=== PATIENT | female | born 1995 | race Caucasian/White ===

== ENCOUNTER 2016-07-05 10:51 | Emergency (ER) | payer OTHER ==
[~2016-07-05] VITALS: Ht 160 cm; Wt 55.0 kg
[2016-07-05 10:52] VITALS: BP 119/66; PULSE 86; RESP 15; TEMP 98.2; O2SAT 99
--- NOTE | 2016-07-05 11:06 | PD ---
HPI Chief Complaint: Related Problem Time Seen by Provider: 11:05 Travel History International Travel<30 days: No Contact w/Intl Traveler<30days: No Traveled to known affect area: No History of Present Illness HPI 20-year-old female came to the emergency room with history of spotting since this morning. She thinks she is 5-6 weeks . She did a home test one week ago and was positive. He went with her OB this . However was brought to the emergency room by her mom with these complaints. She says she had a little bit of cramping initially but that has subsided. Patient is A0. She is otherwise a healthy person. [facility] Past Medical History Narrative Medical List of her past medical, surgical, social and family history was reviewed from the nursing note. ?: LMP: 05/07/16 Social History Tobacco Use: No Allergies-Medications (Allergen,Severity, Reaction): Coded Allergies: No Known Allergies (Unverified , 07/05/16) Comments No known drug allergies. Reported Meds & Prescriptions Reported Meds & Active Scripts Active Macrobid (Nitrofurantoin Monoh/Nitrofur Macro) 100 Mg Cap 100 Mg PO BID 10 Days Clinical Nutrients Prenat 7.5-0.2 mg ( Vitamins W/ Ferrous S) 1 Tab Tab 1 Tab PO ONCE 30 Days Narrative Medication List of her allergies reviewed from the nursing note. Review of Systems Except as stated in HPI: all other systems reviewed are Neg Physical Exam Narrative GENERAL: Awake, alert, no obvious distress SKIN: Focused skin assessment warm/dry. HEAD: Atraumatic. Normocephalic. EYES: Pupils equal and round. No scleral icterus. No injection or drainage. ENT: No nasal bleeding or discharge. Mucous membranes pink and moist. NECK: Trachea midline. No JVD. CARDIOVASCULAR: Regular rate and rhythm. No murmur appreciated. RESPIRATORY: No accessory muscle use. Clear to auscultation. Breath sounds equal bilaterally. GASTROINTESTINAL: Abdomen soft, non-tender, nondistended. Hepatic and splenic margins not palpable. MUSCULOSKELETAL: No obvious deformities. No clubbing. No cyanosis. No edema. NEUROLOGICAL: Awake and alert. No obvious cranial nerve deficits. Motor grossly within normal limits. Normal speech. PSYCHIATRIC: Appropriate mood and affect; insight and judgment normal. Data Data Last Documented VS Vital Signs Date Time Temp Pulse Resp B/P Pulse Ox O2 Delivery O2 Flow Rate FiO2 07/05/16 13:19 97 18 120/68 99 07/05/16 10:52 98.2 Orders Complete Blood Count With Diff (07/05/16 11:12) Complete Rh (07/05/16 11:12) Urinalysis - C+S If Indicated (07/05/16 11:12) Ed Urine Pregnancytest Poc (07/05/16 11:12) Ed Poc Ultrasound (07/05/16 11:12) Beta Hcg (Quant/Titer) (07/05/16 11:13) Basic Metabolic Panel (Bmp) (07/05/16 11:30) Urine Culture (07/05/16 11:23) Nitrofurantoin Monohyd Macrocr (Macrobid (07/05/16 12:30) Labs Laboratory Tests Test 07/05/16 07/05/16 11:23 11:30 Urine Color YELLOW Urine Turbidity HAZY Urine pH 6.0 Urine Specific [place] 1.022 Urine Protein 30 mg/dL Urine Glucose (UA) NEG mg/dL Urine Ketones 10 mg/dL Urine Occult Blood LARGE Urine Nitrite POS Urine Bilirubin NEG Urine Urobilinogen LESS THAN 2.0 MG/DL Urine Leukocyte Esterase MOD Urine RBC 1 /hpf Urine WBC 30 /hpf Urine Squamous Epithelial 12 /hpf Cells Urine Bacteria FEW /hpf Urine Mucus FEW /lpf Microscopic Urinalysis Comment CULTURE INDICATED White Blood Count 6.2 TH/MM3 Red Blood Count 4.70 MIL/MM3 Hemoglobin 14.2 GM/DL Hematocrit 41.5 % Mean Corpuscular Volume 88.4 FL Mean Corpuscular Hemoglobin 30.2 PG Mean Corpuscular Hemoglobin 34.1 % Concent Red Cell Distribution Width 12.9 % Platelet Count 247 TH/MM3 Mean Platelet Volume 8.4 FL Neutrophils (%) (Auto) 59.1 % Lymphocytes (%) (Auto) 29.6 % Monocytes (%) (Auto) 9.2 % Eosinophils (%) (Auto) 1.8 % Basophils (%) (Auto) 0.3 % Neutrophils # (Auto) 3.7 TH/MM3 Lymphocytes # (Auto) 1.8 TH/MM3 Monocytes # (Auto) 0.6 TH/MM3 Eosinophils # (Auto) 0.1 TH/MM3 Basophils # (Auto) 0.0 TH/MM3 CBC Comment DIFF FINAL Differential Comment Sodium Level 138 MEQ/L Potassium Level 3.5 MEQ/L Chloride Level 105 MEQ/L Carbon Dioxide Level 27.7 MEQ/L Anion Gap 5 MEQ/L Blood Urea Nitrogen 5 MG/DL Creatinine 0.55 MG/DL Estimat Glomerular Filtration 140 ML/MIN Rate Random Glucose 82 MG/DL Calcium Level 9.0 MG/DL Human Chorionic Gonadotropin, [id number] MIU/ML Quant Blood Type A POSITIVE Rho(D) Type POSITIVE MDM Medical Decision Making Medical Screen Exam Complete: Yes Emergency Medical Condition: Yes Medical Record Reviewed: Yes Differential Diagnosis Tetanus , ectopic , early with bleed Narrative Course 11:29 AM blood tests has been ordered. I'll do a bedside ultrasound. The whole process has been explained to the patient and her mother. 12:25 PM awaiting for the beta-hCG. Patient does have significant UTI and I ordered 1 dose of Macrobid for her. Please look at my procedure note for the pelvic ultrasound. Patient will be discharged home with prescriptions. Procedures Procedure Narrative Emergency Department Pelvic ultrasound was performed with patient consent. The curvilinear probe was used in the transverse and sagittal views within the suprapubic region revealing single, live intrauterine . heart rate was 164 bpm. See this measures 7 weeks in 6 days by crown rump length. EKG Prior to Arrival: No Diagnosis Primary Impression: First trimester Additional Impressions: Threatened miscarriage UTI (urinary tract infection) Qualified Code: N39.0 - Urinary tract infection without hematuria, site unspecified Referrals: Primary Care Physician 2 days Additional Instructions: Please follow-up with your OB as soon as possible. He needs to return in 48 hours to get here beta hCG repeated. Drink lots of fluid. You should not be lifting weights heavier than 5 pounds. Take the medications as per the prescription direction. Please return to the ER if the condition worsens or any other new concerns. Med/Other Pt SpecificInfo: Prescription(s) given Scripts Nitrofurantoin Monohydrate Macrocrystals (Macrobid)100 Mg [id number] Mg PO BID 10 Days Ref 0 Prov:Deniz Gill MD 07/05/16 Vitamins W/ Ferrous S (Clinical Nutrients Prenat 7.5-0.2 mg)1 Tab Tab1 Tab PO ONCE 30 Days Prov:Deniz Gill MD 07/05/16 Disposition: 01 DISCHARGE HOME Condition: Stable Deniz Gill MD July 05, 2016 11:06
[2016-07-05 12:01] LABS: AUTOMATED NEUTROPHIL # 3.7 TH/MM3 (1.8-7.7); BASOPHIL % 0.3 % (0.0-2.0); EOSINOPHIL # 0.1 TH/MM3 (0-0.4); EOSINOPHIL % 1.8 % (0.0-4.0); HEMATOCRIT 41.5 % (35.0-46.0); HEMO FLAGS DIFF FINAL; LYMPH % 29.6 % (9.0-44.0); LYMPHOCYTE # 1.8 TH/MM3 (1.0-4.8); MEAN CELL VOLUME 88.4 FL (80.0-100.0); MEAN CORPUSCULAR HEMOGLOBIN 30.2 PG (27.0-34.0); MEAN CORPUSCULAR HGB CONC 34.1 % (32.0-36.0); MONO % 9.2 % (0.0-8.0); NEUT % 59.1 % (16.0-70.0); PLATELET COUNT 247 TH/MM3 (150-450); RED CELL DISTRIBUTION WIDTH 12.9 % (11.6-17.2); WHITE BLOOD COUNT 6.2 TH/MM3 (4.0-11.0)
[2016-07-05 12:10] LABS: BACTERIA, URINE FEW /hpf; BLOOD, URINE LARGE (NEG); COMMENT (UR) CULTURE INDICATED; CULTURE IF INDICATED CULTURE INDICATED; GLUCOSE,URINE NEG (NEG); KETONE, URINE 10 mg/dL (NEG); MUCUS URINE FEW /lpf (OCC); SQUAMOUS EPITHELIAL CELL URINE 12 /hpf (0-5); URINE COLOR YELLOW (YELLW/STRAW)
[2016-07-05 12:12] LABS: NITRITE,URINE POS (NEG)
[2016-07-05 12:16] LABS: BICARBONATE 27.7 MEQ/L (21.0-32.0); POTASSIUM 3.5 MEQ/L (3.5-5.1)
[2016-07-05] MEDS ORDERED: CLINTAB7 PO (12:29)
[2016-07-05] MEDS ORDERED: MACR100C2 PO (12:29)
[2016-07-05] MEDS ORDERED: NITROFURANTOIN MONOHYD MACROCR 100 MG CAP PO ONE (12:30)
[2016-07-05 13:19] VITALS: BP 120/68
== END 2016-07-05 13:20 | disposition home or self-care (01) ==
LOC: NEPD 10:51
DX: O20.0 Threatened abortion (principal); O23.41 Unspecified infection of urinary tract in pregnancy, first trimester; Z3A.01 Less than 8 weeks gestation of pregnancy; B96.89 Other specified bacterial agents as the cause of diseases classified elsewhere
CPT/HCPCS: 80048; 81001; 84702; 84703; 85025; 86901; 87086; 99284

== ENCOUNTER 2016-07-07 11:25 | Emergency (ER) | payer OTHER ==
[~2016-07-07 11:25] MED LIST: CLINTAB7 PO; MACR100C2 PO
[2016-07-07 11:26] VITALS: BP 114/83; PULSE 106; RESP 18; TEMP 98.2; O2SAT 99
--- NOTE | 2016-07-07 11:30 | PD ---
Physical Exam Date Seen by Provider: July 07, 2016 Time Seen by Provider: 11:28 Narrative 20 year old female presents to the emergency department for repeat beta HCG. No vaginal bleeding, discharge, leakage of fluid. Patient is a G1, P0. She denies any other complications. Patient was here 2 days ago for vaginal bleeding, but this has resolved. Vital signs reviewed. Patient awaiting bed placement. Data Data Last Documented VS Vital Signs Date Time Temp Pulse Resp B/P Pulse Ox O2 Delivery O2 Flow Rate FiO2 07/07/16 11:26 98.2 106 18 114/83 99 MDM Supervised Visit with BRIANNA: Cecily Dewey July 07, 2016 11:30
--- NOTE | 2016-07-07 12:32 | PD ---
HPI Chief Complaint: Related Problem Time Seen by Provider: 12:25 Travel History International Travel<30 days: No Contact w/Intl Traveler<30days: No Traveled to known affect area: No History of Present Illness HPI 20-year-old female approximately 7-8 weeks presents to the emergency department for repeat beta hCG. Patient was seen in our emergency department 2 days ago vaginal spotting. States that at that time they did an ultrasound were able to see the baby and uterus and she was also diagnosed with urinary tract infection. States she has been taking the antibiotics as prescribed. States that she has not had any vaginal bleeding or spotting since that occurred 2 days ago. She states that she has occasional nausea but no vomiting. Denies fever, chills, abdominal pain, diarrhea, constipation. No other complaints. PFSH Past Medical History Medical History: Denies Significant Hx ?: Past Surgical History Tonsillectomy: Yes Social History Alcohol Use: No Tobacco Use: No Substance Use: No Allergies-Medications (Allergen,Severity, Reaction): Coded Allergies: No Known Allergies (Unverified , 07/07/16) Reported Meds & Prescriptions Reported Meds & Active Scripts Active Macrobid (Nitrofurantoin Monoh/Nitrofur Macro) 100 Mg Cap 100 Mg PO BID 10 Days Clinical Nutrients Prenat 7.5-0.2 mg ( Vitamins W/ Ferrous S) 1 Tab Tab 1 Tab PO ONCE 30 Days Review of Systems Except as stated in HPI: all other systems reviewed are Neg Physical Exam Narrative GENERAL: Well-nourished and well-developed pleasant female patient in no acute distress who is nontoxic appearing. SKIN: Warm and dry. HEAD: Normocephalic and atraumatic. EYES: No injection, drainage, or hyphema noted. PERRLA. EOMI. ENT: No nasal drainage noted. Oropharynx is clear. NECK: Supple and the trachea is midline. CARDIOVASCULAR: Regular rate and rhythm. RESPIRATORY: Breath sounds are equal bilaterally with no accessory muscle use, wheezing, rhonchi, or crackles. GASTROINTESTINAL: Abdomen is soft, non-tender, and nondistended. MUSCULOSKELETAL: No obvious deformities, swelling, cyanosis, or ecchymosis is present throughout the upper and lower extremities. NEUROLOGICAL: Awake, alert, and oriented. Normal speech and gait. Cranial nerves are grossly intact. Data Data Last Documented VS Vital Signs Date Time Temp Pulse Resp B/P Pulse Ox O2 Delivery O2 Flow Rate FiO2 07/07/16 12:15 16 07/07/16 11:26 98.2 106 114/83 99 Orders Beta Hcg (Quant/Titer) (07/07/16 11:31) Labs Laboratory Tests Test 07/07/16 11:37 Human Chorionic Gonadotropin, [id number] MIU/ML Quant MDM Medical Decision Making Medical Screen Exam Complete: Yes Emergency Medical Condition: Yes Differential Diagnosis Early versus threatened miscarriage versus UTI Narrative Course 20-year-old female presents to the emergency department for evaluation and repeat beta hCG. Patient is afebrile, vital signs are stable. Abdominal examination is benign. She had vaginal spotting 2 days ago, none since then. I reviewed the EMR from her visit 2 days ago where she had an ultrasound performed which showed a 7 week intrauterine with heart beat. We'll repeat the patient's beta hCG level today. Beta-HCG is 120,221 which is an increase from 2 days ago. Patient is advised follow-up with her [employer]INATOR. Stable for discharge. I discussed the case with my attending physician Dr. Bowles who is aware of the patients history, physical examination findings, and treatment plan. Diagnosis Primary Impression: First trimester Referrals: Cytotechnologist/Histotechnologist Patient Instructions: First Trimester (ED), General Instructions Additional Instructions: Your beta hcg level has increased appropriately. Follow-up with your OBGYN. Return to the ED for any acute worsening of symptoms. Med/Other Pt SpecificInfo: No Change to Meds Disposition: 01 DISCHARGE HOME Condition: Stable Antonieta Martinez July 07, 2016 12:32
== END 2016-07-07 13:20 | disposition home or self-care (01) ==
LOC: NEPD 11:25
DX: O23.41 Unspecified infection of urinary tract in pregnancy, first trimester (principal); Z3A.01 Less than 8 weeks gestation of pregnancy
CPT/HCPCS: 84702; 99284

== ENCOUNTER 2016-12-14 11:41 | Emergency (ER) | payer OTHER ==
--- NOTE | 2016-12-14 12:56 | PD ---
HPI Chief Complaint decr FM and leg pain Date Seen: Dec 14, 2016 Time Seen: 12:15 Travel History International Travel<30 Days: No Contact w/Intl Traveler<30Days: No Known Affected Area: No History of Present Illness HPI Pt is a 21y/o G1 @ 31wks who presents for decr FM and leg pain. She states that she ate dinner last night and had felt movement but this morning when she awoke, there was no movement at all. She ate a donut but still no movement so she became concerned and came in for evaluation. Additionally, pt reports leg pain from varicose veins which extend to the vulva. No LOF, ctx, VB. Has PNC with Dr. Stevens. Weeks Gestation: 31 Para: 0 : 1 History Obstetric History Obstetric History G1. current Past Surgical History Narrative Surgical T&A Family History Family History: Negative Social History Alcohol Use: No Tobacco Use: No Substance Abuse: No Allergies-Medications (Allergen,Severity, Reaction): Coded Allergies: No Known Allergies (Unverified , 07/07/16) Home Meds Active Scripts Nitrofurantoin Monohydrate Macrocrystals (Macrobid) 100 Mg Cap, 100 MG PO BID for Infection for 10 Days, CAP 0 Refills Prov:Deniz Gill MD 07/05/16 Vitamins W/ Ferrous S (Clinical Nutrients Prenat 7.5-0.2 mg) 1 Tab Tab , 1 TAB PO ONCE for 30 Days Prov:Deniz Gill MD 07/05/16 Review of Systems Except as stated in HPI: all other systems reviewed are Neg Physical Exam Narrative GENERAL: Well-nourished, well-developed patient. SKIN: Warm and dry. HEAD: Normocephalic and atraumatic. EYES: No scleral icterus. ABDOMEN/GI: Abdomen soft, non-tender, gravid EXTREMITIES: No cyanosis or edema, b/l varicosities to upper and lower legs. NEUROLOGICAL: Awake and alert. Motor and sensory grossly within normal limits. GENITOURINARY: External Genitalia: with varicosities FHT's: Category: 1 Baseline: 135 Reactive: age appropriate 10x10 accels Variability: moderate Decels: very small age appropriate variable TOCO: quiet Data Data Vital Signs Reviewed: Yes Orders Orders Nathalie Bilateral/Knee High MANJIT.QSHIFT (12/14/16 12:48) Vital Signs (Adult) .ON ADMISSION (12/14/16 12:48) ^ Labor Status (12/14/16 12:48) ^ Non Stress Test (12/14/16 12:48) MDM Plan 1. Decr FM -- reassuring NST -- precautions reviewed 2. leg and vulvar varicosities -- NATHALIE benoit ordered Dispo: stable for d/c home; has f/u appt on 12/21 Diagnosis Diagnosis: Primary Impression: Decreased movement Additional Impressions: Varicose vein vulva preg-unspec Varicose veins of legs in Disposition: DISCHARGE HOME Condition: Good Ghassan Traylor MD Dec 14, 2016 12:56
== END 2016-12-14 15:30 | disposition home or self-care (01) ==
LOC: HOBED 11:41
DX: O36.8130 Decreased fetal movements, third trimester, not applicable or unspecified (principal); O22.03 Varicose veins of lower extremity in pregnancy, third trimester; Z3A.31 31 weeks gestation of pregnancy
CPT/HCPCS: 59025

== ENCOUNTER 2017-01-22 11:08 | Inpatient (IN) | payer OTHER ==
[~2017-01-22] VITALS: Ht 157.5 cm; Wt 68.9 kg
[2017-01-22] VITALS (49 sets, daily range): BP systolic 90–128; BP diastolic 49–85; PULSE 84–121; RESP 2–20; TEMP 97.7–100
[2017-01-22] MEDS ORDERED: LACTATED RINGER'S 1000 ML INJ 1,000 ML IV SCH (12:09)
[2017-01-22] MEDS ORDERED: LIDOCAINE HCL 1% 50 ML VIAL I-DERMAL PRN (12:15)
[2017-01-22] MEDS ORDERED: MINERAL OIL 10 ML VIAL TOPICAL PRN (12:15)
[2017-01-22] MEDS ORDERED: LIDOCAINE HCL 1% 50 ML VIAL INFIL PRN (12:15)
[2017-01-22] MEDS ORDERED: OXYTOCIN 30 UNITS-500ML PREMIX 500 ML IV ONE (12:15)
[2017-01-22] MEDS ORDERED: SODIUM CHLORID 0.9% 500 ML INJ 500 ML IV PRN (12:15)
[2017-01-22] MEDS ORDERED: ONDANSETRON HCL 4 MG/2 ML VIAL IV PUSH PRN (12:15)
[2017-01-22] MEDS ORDERED: CITRIC ACID-SODIUM CITRATE LIQ 30 ML UDC PO SCH (12:15)
[2017-01-22] MEDS ORDERED: SODIUM CHLOR 0.9% 1000 ML INJ 1,000 ML IV PRN (12:29)
[2017-01-22 12:30] LABS: AUTOMATED NEUTROPHIL # 6.5 TH/MM3 (1.8-7.7); BASOPHIL % 0.2 % (0.0-2.0); EOSINOPHIL # 0.1 TH/MM3 (0-0.4); EOSINOPHIL % 0.6 % (0.0-4.0); HEMATOCRIT 28.9 % (35.0-46.0); HEMO FLAGS DIFF FINAL; LYMPH % 22.1 % (9.0-44.0); MEAN CELL VOLUME 85.3 FL (80.0-100.0); MEAN CORPUSCULAR HEMOGLOBIN 29.2 PG (27.0-34.0); MEAN CORPUSCULAR HGB CONC 34.2 % (32.0-36.0); MONO % 5.8 % (0.0-8.0); NEUT % 71.3 % (16.0-70.0); PLATELET COUNT 209 TH/MM3 (150-450); RED BLOOD COUNT 3.39 MIL/MM3 (4.00-5.30); RED CELL DISTRIBUTION WIDTH 13.6 % (11.6-17.2); WHITE BLOOD COUNT 9.1 TH/MM3 (4.0-11.0)
[2017-01-22] MEDS: LACTATED RINGER'S 1000 ML INJ 1,000 ML IV PRN ×2 (13:05→15:59)
[2017-01-22] MEDS ORDERED: fentaNYL 2MCG-BUPIV 0.125% INJ 100 ML ONE (13:11)
[2017-01-22 13:25] LABS: BACTERIA, URINE RARE /hpf; BLOOD, URINE LARGE (NEG); COMMENT (UR) CULT NOT INDICATED; CULTURE IF INDICATED CULT NOT INDICATED; GLUCOSE,URINE NEG (NEG); KETONE, URINE NEG (NEG); MUCUS URINE FEW /lpf (OCC); NITRITE,URINE NEG (NEG); SQUAMOUS EPITHELIAL CELL URINE 8 /hpf (0-5); URINE COLOR YELLOW (YELLW/STRAW)
[2017-01-22] MEDS ORDERED: ePHEDrine/NS 25 MG/5 ML SYR IV PUSH PRN (14:30)
[2017-01-22] MEDS ORDERED: NO SYSTEM NARCOTICS PRN (14:30)
[2017-01-22] MEDS ORDERED: fentaNYL 2MCG-BUPIV 0.125% 100 ML EPIDURAL SCH (14:30)
[2017-01-22] MEDS ORDERED: DO NOT ADMINISTER ANTICOAGULANTS PRN (14:30)
[2017-01-22] MEDS ORDERED: MEASLES, MUMPS, RUBELLA VACCINE 0.5 ML VIAL SQ ONE (16:00)
[2017-01-22] MEDS ORDERED: DIPHTH/TETANUS/ACEL PERTUSSIS (BOOSTER) 0.5 ML VIAL/PFS IM ONE (16:00)
[2017-01-22] MEDS ORDERED: OXYTOCIN 30 UNITS/NS 500ML PREMIX IV SCH (16:15)
--- NOTE | 2017-01-22 19:27 | PD.OB.DELI ---
Weeks gestation: 36 Gest age assessed date: Jan 22, 2017 Gest age assessed time: 10:30 Pt started active labor?: Yes Medical induction of labor?: No Artificial rupture of membrane: No Anesthesia: Epidural Episiotomy: None Vaginal Delivery: Normal Presentation: Occiput anterior Nuchal Cord: x1 Delayed cord clamping (45 sec): Yes Shoulder Dystocia: Jeff maneuver done Infant: Female Delivery date: Jan 22, 2017 Delivery time: 19:00 One Minute : 8 Five Minute : 9 Weight: 7/13 Placenta: Spontaneous delivery Laceration: Vaginal laceration, 1 deg (right labial) Repair: Vicryl running Estimated blood loss: 250cc Destin Stevens MD Jan 22, 2017 19:27
--- NOTE | 2017-01-22 19:28 | HHI.DS ---
Admission Date Jan 22, 2017 at 11:52 Admitting Diagnosis Diagnosis: Delivery Date: Jan 22, 2017 Vaginal Delivery: Normal Infant: Female Pt Condition on Discharge: Good Discharge Disposition: Discharge Home Discharge Instructions Diet Instructions: As Tolerated, No Restrictions Activities You Can Perform: Shower Only-No Bath Activities to Avoid: Driving for 24 hrs, Prolonged Standing, Strenuous Activity , Sexual Activity Destin Stevens MD Jan 22, 2017 19:28
[2017-01-22] MEDS ORDERED: WITCH HAZEL 50%/GLYCERIN 12.5% 40 PAD JAR TOPICAL PRN (19:30)
[2017-01-22] MEDS ORDERED: ONDANSETRON ODT 4 MG TAB PO PRN (19:30)
[2017-01-22] MEDS ORDERED: SODIUM CHLORIDE 0.9% FLUSH 10 ML FLUSH IV FLUSH PRN (19:30)
[2017-01-22] MEDS ORDERED: DOCUSATE SODIUM 50 MG/SENNA 8.6 MG TAB PO PRN (19:30)
[2017-01-22] MEDS ORDERED: OXYTOCIN 30 UNITS-500ML PREMIX 500 ML IV SCH (19:30)
[2017-01-22] MEDS ORDERED: oxyCODONE/ACETAMINOPHEN 5 MG/325 MG TAB PO PRN (19:30)
[2017-01-22] MEDS ORDERED: OXYTOCIN 10 UNIT/ML AMP XX PRN (19:30)
[2017-01-22] MEDS ORDERED: ZOLPIDEM TARTRATE 5 MG TAB PO PRN (19:30)
[2017-01-22] MEDS ORDERED: ALUMINUM/MAGNESIUM/SIMETH 30 ML CUP PO PRN (19:30)
[2017-01-22] MEDS ORDERED: BENZOCAINE 20% TOPICAL SPRAY 60 ML CAN TOPICAL PRN (19:30)
[2017-01-22] MEDS ORDERED: SODIUM CHLORIDE 0.9% FLUSH 10 ML FLUSH IV FLUSH SCH (21:00)
[2017-01-22] MEDS: IBUPROFEN 800 MG TAB PO PRN (22:52)
[2017-01-23 02:00] VITALS: TEMP 97.8
[2017-01-23] MEDS: IBUPROFEN 800 MG TAB PO PRN ×3 (06:33→22:50)
[2017-01-23 07:54] VITALS: BP 123/71; PULSE 89; RESP 18; TEMP 97.7
--- NOTE | 2017-01-23 09:30 | HHI.OB ---
Subjective Post Day: 1 Remarks delivered last night at 7 pm with mild dystocia and vaginal tear has FOB and mom in room and in good spirits no complaints other than wanting breakfast tray learning to nurse Objective Vitals/I&O Vital Signs Date Time Temp Pulse Resp B/P (MAP) Pulse Ox O2 Delivery O2 Flow Rate FiO2 01/23/17 07:54 97.7 89 18 123/71 (88) 01/23/17 02:00 97.8 01/22/17 21:40 100.0 108 18 110/67 (81) 01/22/17 20:30 16 01/22/17 20:15 91 106/70 (82) 01/22/17 20:15 18 01/22/17 20:00 101 119/68 (85) 01/22/17 19:50 99.3 16 01/22/17 19:45 84 121/66 (84) 01/22/17 19:39 18 01/22/17 19:30 98 123/77 (92) 01/22/17 19:23 16 01/22/17 19:22 112 111/76 (88) 01/22/17 19:15 85 113/54 (73) 01/22/17 19:00 115 122/82 (95) 01/22/17 18:37 20 01/22/17 18:15 96 119/77 (91) 01/22/17 18:01 110 105/62 (76) 01/22/17 17:52 16 01/22/17 17:46 103 115/71 (86) 01/22/17 17:45 16 01/22/17 17:45 121 01/22/17 17:45 2 01/22/17 17:33 98.8 01/22/17 17:30 95 112/66 (81) 01/22/17 17:23 16 01/22/17 17:16 100 90/64 (73) 01/22/17 17:01 94 101/52 (68) 01/22/17 16:45 87 16 123/67 (85) 01/22/17 16:30 98.6 16 01/22/17 16:30 90 117/66 (83) 01/22/17 16:15 90 112/73 (86) 01/22/17 16:00 102 97/68 (78) 01/22/17 15:51 16 01/22/17 15:45 84 100/58 (72) 01/22/17 15:30 85 16 106/58 (74) 01/22/17 15:16 94 104/62 (76) 01/22/17 15:00 91 110/67 (81) 01/22/17 14:51 16 01/22/17 14:45 89 109/81 (90) 01/22/17 14:30 93 109/63 (78) 01/22/17 14:25 16 01/22/17 14:15 93 111/69 (83) 01/22/17 14:05 97.7 16 01/22/17 14:00 101 01/22/17 14:00 95 112/69 (83) 01/22/17 13:55 110 128/49 (75) 01/22/17 13:55 103 01/22/17 13:52 16 01/22/17 13:50 96 115/81 (92) 01/22/17 13:50 98 01/22/17 13:45 105 121/69 (86) 01/22/17 13:45 102 01/22/17 13:40 91 122/77 (92) 01/22/17 13:35 104 01/22/17 13:35 95 128/71 (90) 01/22/17 13:34 97 127/85 (99) 01/22/17 12:45 98.5 01/22/17 12:15 16 01/22/17 12:11 87 107/61 (76) Objective Remarks GENERAL: Well-nourished, well-developed patient. CARDIOVASCULAR: Regular rate and rhythm without murmurs, gallops, or rubs. RESPIRATORY: Breath sounds equal bilaterally. No accessory muscle use. ABDOMEN/GI: Abdomen soft, non-tender. Fundus: Firm, non-tender at umbilicus. GENITOURINARY: Light to moderate bleeding. EXTREMITIES: No cyanosis or edema, non-tender, without signs of DVT. Medications and IVs Current Medications Medications (Trade) Dose Ordered Sig/Jamal Route Start Time Stop Time Status Last Admin Lactated Ringer's 1,000 ml @ 125 mls/hr Q8H IV 01/22/17 12:09 01/22/17 14:20 Lactated Ringer's 1,000 ml @ 3,000 mls/hr Q20M PRN IV 01/22/17 12:09 01/22/17 15:59 Sodium Chloride 500 ml @ 1,000 mls/hr ONCE PRN IV 01/22/17 12:15 01/23/17 12:14 Sodium Chloride 1,000 ml @ 100 mls/hr Q10H PRN IV 01/22/17 12:29 (Xylocaine 1% Inj (50 ml)) 0.1 ml UNSCH X1 PRN I-DERMAL 01/22/17 12:15 01/25/17 12:14 (Bicitra Liq) 30 ml CYCLE TOURING GUIDE PO 01/22/17 12:15 01/26/17 12:14 (Zofran Inj) 4 mg Q6H PRN IV PUSH 01/22/17 12:15 (fentaNYL INJ) 50 mcg Q1H PRN IV PUSH 01/22/17 12:15 (fentaNYL INJ) 100 mcg Q1H PRN IV PUSH 01/22/17 12:15 (Xylocaine 1% Inj (50 ml)) 10 ml UNSCH X1 PRN INFIL 01/22/17 12:15 01/24/17 12:14 (Muri-Lube Oil) 10 ml UNSCH PRN TOPICAL 01/22/17 12:15 Miscellaneous Information No systemic narcotics to be given except... UNSCH PRN .XX 01/22/17 14:30 01/23/17 14:29 Miscellaneous Information DO NOT ADMINISTER ANY ANTICOAGUL... UNSCH PRN .XX 01/22/17 14:30 01/23/17 14:29 Fentanyl/ Bupivacaine HCl 100 ml @ 0 mls/hr TITRATE EPIDURAL 01/22/17 14:30 (ePHEDrine/NS 25 MG/5 ML SYR) 10 mg UNSCH PRN IV PUSH 01/22/17 14:30 01/23/17 14:29 Oxytocin 500 ml @ 1 mls/hr TITRATE IV 01/22/17 16:15 (Pitocin Inj) 20 units UNSCH X1 PRN XX 01/22/17 19:30 01/23/17 19:29 (NS Flush) 2 ml BID IV FLUSH 01/22/17 21:00 (NS Flush) 2 ml UNSCH PRN IV FLUSH 01/22/17 19:30 (Tylenol) 650 mg Q4H PRN PO 01/22/17 19:30 (Motrin) 800 mg Q8H PRN PO 01/22/17 19:30 01/23/17 06:33 (Percocet 5-325 Mg) 1 tab Q4H PRN PO 01/22/17 19:30 (Americaine 20% Top Spr) 1 spray Q4H PRN TOPICAL 01/22/17 19:30 01/22/17 22:52 (Tucks Pads) 1 applic QID PRN TOPICAL 01/22/17 19:30 01/22/17 22:53 (Radhika-Colace) 2 tab Q12H PRN PO 01/22/17 19:30 (Ambien) 5 mg HS PRN PO 01/22/17 19:30 (Mag-Al Plus Susp Liq) 15 ml Q8H PRN PO 01/22/17 19:30 (Zofran Odt) 4 mg Q6H PRN PO 01/22/17 19:30 Assessment/Plan Assessment and Plan PPD1 for an engaged but young new mom--first baby needs to stay until tomorrow for nursing oversight and teaching denies hx depression and should do well RTO 2 weeks discharge criteria not met for today Pratima Foreman MD Jan 23, 2017 09:30
[2017-01-23] MEDS: ACETAMINOPHEN 325 MG TAB PO PRN ×3 (14:08→22:50)
[2017-01-23 20:13] VITALS: BP 94/49; PULSE 90; RESP 16; TEMP 98
[2017-01-24] MEDS: ACETAMINOPHEN 325 MG TAB PO PRN (02:58)
[2017-01-24 08:00] VITALS: BP 121/76; PULSE 73; RESP 16; TEMP 97.6
--- NOTE | 2017-01-24 08:01 | HHI.OB ---
Subjective Post Day: 2 Remarks doing well, no complaints Objective Vitals/I&O Vital Signs Date Time Temp Pulse Resp B/P (MAP) Pulse Ox O2 Delivery O2 Flow Rate FiO2 01/23/17 20:13 98.0 90 16 94/49 (64) Objective Remarks GENERAL: Well-nourished, well-developed patient. CARDIOVASCULAR: Regular rate and rhythm without murmurs, gallops, or rubs. RESPIRATORY: Breath sounds equal bilaterally. No accessory muscle use. ABDOMEN/GI: Abdomen soft, non-tender. Fundus: Firm, non-tender at umbilicus. GENITOURINARY: Light to moderate bleeding. EXTREMITIES: No cyanosis or edema, non-tender, without signs of DVT. Medications and IVs Current Medications Medications (Trade) Dose Ordered Sig/Jamal Route Start Time Stop Time Status Last Admin Lactated Ringer's 1,000 ml @ 125 mls/hr Q8H IV 01/22/17 12:09 01/22/17 14:20 Lactated Ringer's 1,000 ml @ 3,000 mls/hr Q20M PRN IV 01/22/17 12:09 01/22/17 15:59 Sodium Chloride 1,000 ml @ 100 mls/hr Q10H PRN IV 01/22/17 12:29 (Xylocaine 1% Inj (50 ml)) 0.1 ml UNSCH X1 PRN I-DERMAL 01/22/17 12:15 01/25/17 12:14 (Bicitra Liq) 30 ml SAFETY TECHNICIAN PO 01/22/17 12:15 01/26/17 12:14 (Zofran Inj) 4 mg Q6H PRN IV PUSH 01/22/17 12:15 (fentaNYL INJ) 50 mcg Q1H PRN IV PUSH 01/22/17 12:15 (fentaNYL INJ) 100 mcg Q1H PRN IV PUSH 01/22/17 12:15 (Xylocaine 1% Inj (50 ml)) 10 ml UNSCH X1 PRN INFIL 01/22/17 12:15 01/24/17 12:14 (Muri-Lube Oil) 10 ml UNSCH PRN TOPICAL 01/22/17 12:15 Fentanyl/ Bupivacaine HCl 100 ml @ 0 mls/hr TITRATE EPIDURAL 01/22/17 14:30 Oxytocin 500 ml @ 1 mls/hr TITRATE IV 01/22/17 16:15 (NS Flush) 2 ml BID IV FLUSH 01/22/17 21:00 (NS Flush) 2 ml UNSCH PRN IV FLUSH 01/22/17 19:30 (Tylenol) 650 mg Q4H PRN PO 01/22/17 19:30 01/24/17 02:58 (Motrin) 800 mg Q8H PRN PO 01/22/17 19:30 01/23/17 22:50 (Percocet 5-325 Mg) 1 tab Q4H PRN PO 01/22/17 19:30 (Americaine 20% Top Spr) 1 spray Q4H PRN TOPICAL 01/22/17 19:30 01/22/17 22:52 (Tucks Pads) 1 applic QID PRN TOPICAL 01/22/17 19:30 01/22/17 22:53 (Radhika-Colace) 2 tab Q12H PRN PO 01/22/17 19:30 (Ambien) 5 mg HS PRN PO 01/22/17 19:30 (Mag-Al Plus Susp Liq) 15 ml Q8H PRN PO 01/22/17 19:30 (Zofran Odt) 4 mg Q6H PRN PO 01/22/17 19:30 Assessment/Plan Assessment and Plan PPD2 for an engaged but young new mom--first baby denies hx depression and should do well RTO 2 weeks Discharge Planning routine today Attending Attestation pt seen by Jes Flores MD Jan 24, 2017 08:01
[2017-01-24] MEDS ORDERED: IBUP1TAB7 PO (08:02)
[2017-01-24] MEDS: IBUPROFEN 800 MG TAB PO PRN (08:06)
== END 2017-01-24 12:38 | disposition home or self-care (01) | DRG 775 ==
LOC: HOBED 11:08 → H2EB 11:52 → H1EA 21:15
PROVIDERS: ADMIT Obstetrics & Gynecology; ATTEND Obstetrics & Gynecology
PROC: 10E0XZZ Delivery of Products of Conception, External Approach (ICD-10-PCS; principal; 2017-01-22)
PROC: 0HQ9XZZ Repair Perineum Skin, External Approach (ICD-10-PCS; 2017-01-22)
DX: O69.81X0 Labor and delivery complicated by cord around neck, without compression, not applicable or unspecified (principal); O66.0 Obstructed labor due to shoulder dystocia; Z3A.36 36 weeks gestation of pregnancy; Z37.0 Single live birth; O70.0 First degree perineal laceration during delivery
CPT/HCPCS: 59025; 80307; 81001; 85025; 86900; 86901; 99285; J2590; J7120